=== PATIENT | female | born 1990 | race Caucasian/White ===

== ENCOUNTER 2022-05-17 01:16 | Emergency (ER) | payer OTHER ==
[~2022-05-17] VITALS: Ht 162.6 cm; Wt 77.1 kg
[~2022-05-17 01:16] MED LIST: CLON2 PO; CYCL10; ESCI20; HYDACE5 PO; IBUP600; IBUP800; LAMO100; METH5 PO; QUET25
[2022-05-17] MEDS ORDERED: CEPH500 PO (06:16)
== END 2022-05-17 06:25 | disposition home or self-care (01) ==
LOC: ER 01:16
DX: L03.116 Cellulitis of left lower limb (principal); L03.115 Cellulitis of right lower limb; F17.290 Nicotine dependence, other tobacco product, uncomplicated; Z88.8 Allergy status to other drugs, medicaments and biological substances; Z79.899 Other long term (current) drug therapy
CPT/HCPCS: 99283; A9270

== ENCOUNTER 2022-06-13 12:24 | Emergency (ER) | payer OTHER ==
[~2022-06-13] VITALS: Ht 162.6 cm; Wt 72.6 kg
[~2022-06-13 12:24] MED LIST changes: +CEPH500 PO
[2022-06-13] MEDS ORDERED: CHLO25B PO (12:56)
[2022-06-13] MEDS ORDERED: Cymbalta20 MG (12:57)
[2022-06-13] MEDS ORDERED: GABA400 (12:57)
[2022-06-13] MEDS ORDERED: CATAPRES0.1 MG (12:58)
== END 2022-06-13 14:40 | disposition home or self-care (01) ==
LOC: ER 12:24
DX: S09.93XA Unspecified injury of face, initial encounter (principal); F11.20 Opioid dependence, uncomplicated; F17.290 Nicotine dependence, other tobacco product, uncomplicated; V89.2XXA Person injured in unspecified motor-vehicle accident, traffic, initial encounter; Z88.8 Allergy status to other drugs, medicaments and biological substances; Z79.899 Other long term (current) drug therapy
CPT/HCPCS: 70450; 99284-25